=== PATIENT | male | born 1950 | race Caucasian/White ===

== ENCOUNTER → 2020-03-02 15:52 | Outpatient (CLI) | payer MEDICARE, OTHER, SELFPAY ==
[2020-03-02 17:18] LABS: Anion Gap 4 (5-15); BUN 38 mg/dL (7-18); BUN/Creat Ratio 23.6 RATIO (10-20); Calcium,Total 8.9 mg/dL (8.5-10.1); Chloride 110 mmol/L (98-107); Creatinine, Serum 1.61 mg/dL (0.70-1.30); EST Glomerular Filtration Rate 46 mL/min (>60); Est Glom Filt Rate - Afr Amer 55 mL/min (>60); Glucose 128 mg/dL (74-106); PSA,Total - Annual Screen 0.76 ng/mL (0.00-4.00); Sodium Level 141 mmol/L (136-145)
== END ==
PROVIDERS: PCP Nurse Practitioner Primary Care; Referring Provider Urology; Visit Provider Urology
DX: Q62.11 Congenital occlusion of ureteropelvic junction (principal); Z12.5 Encounter for screening for malignant neoplasm of prostate
CPT/HCPCS: 36415; 80048; 84153; G0103

== ENCOUNTER → 2021-04-06 06:57 | Outpatient (CLI) | payer MEDICARE, OTHER, SELFPAY ==
[2021-04-06 07:33] LABS: Hematocrit 37.6 % (40-54); Hemoglobin 12.1 g/dL (13.0-16.5); Mean Corp Hgb Conc 32.2 g/dL (32-36); Mean Corpuscular Hgb 30.2 pg (27.0-32.0); Mean Corpuscular Volume 93.8 fL (80-94); Mean Platelet Vol. 10.4 fl (6.2-12.0); Platelet Count 218 K/mm3 (150-450); RBC Distribution Width CV 13.3 % (11.6-14.6); RBC Distribution Width SD 46.5 fl (35.1-43.9); Red Blood Count 4.01 M/mm3 (4.6-6.2)
[2021-04-06 07:55] LABS: Hemoglobin A1c 7.3 % (3.8-5.6)
[2021-04-06 08:00] LABS: Anion Gap 4 (5-15); BUN 37 mg/dL (7-18); BUN/Creat Ratio 22.4 RATIO (10-20); Calcium,Total 8.9 mg/dL (8.5-10.1); Chloride 110 mmol/L (98-107); Creatinine, Serum 1.65 mg/dL (0.70-1.30); EST Glomerular Filtration Rate 44 mL/min (>60); Est Glom Filt Rate - Afr Amer 54 mL/min (>60); Glucose 173 mg/dL (74-106); Potassium 4.3 mmol/L (3.5-5.1); Sodium Level 139 mmol/L (136-145)
== END ==
PROVIDERS: PCP Nurse Practitioner Primary Care; Referring Provider Physician Assistant Surgical; Visit Provider Physician Assistant Surgical
DX: Z01.818 Encounter for other preprocedural examination (principal); Z01.810 Encounter for preprocedural cardiovascular examination; E11.9 Type 2 diabetes mellitus without complications
CPT/HCPCS: 36415; 80048; 83036; 85027

== ENCOUNTER → 2023-12-31 | Outpatient (CLI) | payer MEDICARE, OTHER, SELFPAY ==
--- NOTE | 2023-12-31 08:11 | CT_ITS ---
STUDY: CT LEFTLOWER EXTREMITY WITHOUT CONTRAST REASON FOR EXAM: Male, 73 years old. PRIMARY OSTEOARTHRISTIS LEFT KNEE RADIATION DOSAGE (If Supplied By Facility): CTDIvol = ( 18.56 ) mGy, DLP = ( 1141.72 ) mGycm TECHNIQUE: Thin section transaxial imaging of the ankle was obtained, with sagittal and coronal reconstructed images. Individualized dose optimization techniques were used for this CT. COMPARISON: None. Hip findings: The left hip joint space is preserved. Mixed gluteal fatty atrophy and scarring is present with calcific tendinitis also present is proximal to the greater tuberosity insertion site. There are no visualized fractures of the left hip joint or hemipelvic bony structures. Normal acetabulum. Normal superior and inferior pubic rami. Normal pubic symphysis. Normal ischial tuberosity. Normal origin of the hamstring tendons. Normal visualized iliac wing, sacroiliac joint, and sacral ala. Normal visualized soft tissue structures of the pelvis. Knee findings: There is severe narrowing of medial compartment. The patellofemoral and lateral compartments are mildly to moderately narrowed with secondary degenerative changes including multiple loose bodies in the patellofemoral articulation. There is also calcification of the collateral ligaments. Cortical spurring and subchondral cysts are also present on both sides of the articulation. Multiple loose bodies are also seen on the medial side of the knee joint distending the joint capsule. A moderate-sized knee joint effusion is present. There is also moderate subcutaneous edema around the knee joint extending into the upper calf. Normal proximal tibiofibular articulation. The quadriceps tendon is grossly normal. The patellar tendon is grossly normal. Normal Hoffa''s fat pad. No fractures are present in the joint. Ankle findings: Normal visualized distal tibia and fibula. Normal tibiotalar articulation and talar dome. There is mild narrowing cortical spurring and osteoarthritic changes of the talocalcaneal articulations. Normal subtalar, talonavicular and calcaneocuboid articulations. Atherosclerotic calcifications are present. Mild soft tissue swelling is also present. CT/Extremity Lower without Contra IMPRESSION: 1. Tricompartmental DJD of the knee joint with severe degenerative changes in the medial compartment Electronically Signed: Mike Dukes MD at 9:09 EDT ,
== END | disposition home or self-care (01) ==
LOC: CT 08:05
PROVIDERS: PCP Family Medicine; Referring Provider Physician Assistant Surgical; Visit Provider Physician Assistant Surgical
DX: M17.12 Unilateral primary osteoarthritis, left knee (principal)
CPT/HCPCS: 73700

== ENCOUNTER → 2024-04-07 | Outpatient (CLI) | payer MEDICARE, OTHER, SELFPAY ==
[2024-04-07 11:27] LABS: Bacteria 0 SEEN /hpf (None Seen); Mucous, Urine 0 SEEN /hpf (<or=2+); Red Blood Cells-Urine 0 SEEN /hpf (0-5); Squamous Epithelial Cells - UA 0 SEEN /hpf (0-5); White Blood Cells 0 SEEN /hpf (0-5)
[2024-04-07 11:38] LABS: Color, Urine Straw (Yellow); Glucose, Dipstick Normal (Normal); Ketone-Dipstick Negative (Negative); Leukocyte Esterase-Dipstick Negative /ul (Negative); Nitrite-Dipstick Negative (Negative); Occult Blood-Urine Negative /ul (Negative); Protein-Dipstick 100 mg/dl (Negative); Urine Bilirubin Dipstick Negative (Negative); Urine Clarity Clear (Clear); Urine Urobilinogen Normal (Normal)
[2024-04-07 12:11] LABS: Albumin, Serum 3.3 g/dL (3.2-5.0); BUN 61 mg/dL (7-18); BUN/Creat Ratio 27.4 RATIO (10-20); Calcium,Total 9.7 mg/dL (8.5-10.1); Chloride 109 mmol/L (98-107); Creatinine, Serum 2.23 mg/dL (0.70-1.30); EST Glomerular Filtration Rate 31 mL/min (>60); Est Glom Filt Rate - Afr Amer 37 mL/min (>60); Glucose 141 mg/dL (74-106); Phosphorus 3.7 mg/dL (2.5-4.9); Potassium 5.2 mmol/L (3.5-5.1); Sodium Level 139 mmol/L (136-145)
[2024-04-07 12:50] LABS: Microalbumin:Creatinine Ratio 4325.4 mg/g CRE (<30 mg/g CRE)
== END | disposition home or self-care (01) ==
LOC: POLAB3 11:25
PROVIDERS: PCP Family Medicine; Visit Provider Internal Medicine Nephrology
DX: R39.89 Other symptoms and signs involving the genitourinary system (principal)
CPT/HCPCS: 36415; 80069; 81001; 82043; 82570

== ENCOUNTER 2024-04-12 07:15 | Observation (INO) | payer MEDICARE, OTHER, SELFPAY ==
--- NOTE | 2024-03-30 07:34 | EKG12_ITS ---
Test Reason : PRE OP Blood Pressure : / mmHG Vent. Rate : 063 BPM Atrial Rate : 063 BPM P-R Int : 198 ms QRS Dur : 080 ms QT Int : 394 ms P-R-T Axes : 060 -37 045 degrees QTc Int : 403 ms Sinus rhythm with occasional Premature ventricular complexes Left axis deviation Anteroseptal infarct , age undetermined Abnormal ECG Confirmed by DRE SANDERS, JOANA ([id number]), telegraph editor FLAKITA DALY ([id number]) on 03/30/2024 1:26:30 PM Referred By: Shar Parikh Confirmed By:JOANA ERICKSON MD
[2024-03-30 08:08] LABS: Absolute Lymphocyte Count 1.82 X10^3/uL (0.83-4.51); Absolute Neutrophil Count 6.6 X10^3/uL (2.0-7.7); Basophil# 0.07 X10^3/uL; Basophil% 0.7 % (0-1); Eosinophil# 0.19 X10^3/uL; Hematocrit 35.9 % (40-54); Hemoglobin 11.4 g/dL (13.0-16.5); Lymphocyte # 1.82 X10^3/ul (0.83-4.51); Lymphocyte % 18.8 % (19-41); Mean Corp Hgb Conc 31.8 g/dL (32-36); Mean Corpuscular Hgb 30.1 pg (27.0-32.0); Mean Corpuscular Volume 94.7 fL (80-94); Mean Platelet Vol. 10.4 fl (6.2-12.0); Monocyte# 0.95 X10^3/uL; Monocyte% 9.8 % (0-10); NRBC Flagged by Analyzer 0 % (0-5); Platelet Count 210 K/mm3 (150-450); RBC Distribution Width CV 13.8 % (11.6-14.6); RBC Distribution Width SD 47.8 fl (35.1-43.9); Red Blood Count 3.79 M/mm3 (4.6-6.2); White Blood Count 9.7 K/mm3 (4.4-11.0)
[2024-03-30 08:32] LABS: Albumin, Serum 2.9 g/dL (3.2-5.0); Anion Gap 4 (5-15); BUN 43 mg/dL (7-18); BUN/Creat Ratio 20.2 RATIO (10-20); Calcium,Total 8.8 mg/dL (8.5-10.1); Chloride 108 mmol/L (98-107); Creatinine, Serum 2.13 mg/dL (0.70-1.30); EST Glomerular Filtration Rate 33 mL/min (>60); Est Glom Filt Rate - Afr Amer 40 mL/min (>60); Glucose 104 mg/dL (74-106); Potassium 5.1 mmol/L (3.5-5.1); Sodium Level 138 mmol/L (136-145)
[2024-03-30 08:34] LABS: Magnesium 2.1 mg/dL (1.6-2.6)
[2024-03-30 08:36] LABS: Hemoglobin A1c 6.6 % (3.8-5.6)
--- NOTE | 2024-04-03 07:35 | PCM.HP.BLA ---
History and Physical History and Physical Patient Name: Gil Turcios : 1950From:? GIL LAWRENCE PA-C DATE OF PRE-OPERATIVE EXAM: 04/02/2024 DATE OF SURGERY:? 04/12/2024 SCHEDULED PROCEDURE: Robotic-assisted left total knee arthroplasty HISTORY OF PRESENT ILLNESS: Preoperative history and physical exam was performed on April 02, 2024.? This is a 73-year-old male who has had ongoing pain for many years.? Patient has had a significant amount of treatment while residing in [place] in the past.? Patient's pain has been constant and sore.? Patient's pain is increased with going up and down stairs, sitting, and walking.? Pain does not awaken him at night.? Patient has difficulty with activities of daily living including putting on his socks and shoes and leisure activities such as hiking.? Patient's pain can reach at ?10/10.? On average 4/10.? Pain is located over the medial aspect of the knee and the anterior knee.? Patient has attempted previous conservative measures including corticosteroid injection which was not helpful, Visco supplementation injections with only temporary relief.? He reports at one time orthopedic provider in [place] attempted aspiration but was unsuccessful.? Patient denies past history of previous surgery.? He has attempted [id number]-[id number] medications including Tylenol.? He has difficulty driving due to the pain.? Patient is unable to use nonsteroidal anti-inflammatory as he has chronic kidney disease and only has 1 kidney.? 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 We have obtain surgical clearance from his inside sales recruiter Dr. Andre Lucas who is in [place], local primary care provider Dr. Esparza, and double needle operator in [place] Dr. Alec Arevalo.? Patient denies any recent chest pain or shortness of breath.? Denies past history of DVT or pulmonary embolism.? Patient's recent lab work did show some elevated kidney function and we are reaching out to the double needle operator with updated labs.? Patient was also placed on ferrous sulfate and folic acid following our anemia protocol.? He is on our nutrition protocol with 2 protein drinks daily.? After failing conservative measures and discussing treatment options was Dr. Shar Parikh, the patient does wish to proceed with a robotic assisted left total knee arthroplasty. REVIEW OF SYSTEMS: Review Of Systems: Constitutional: Denies change in appetite, fever and weight change. Cardiovasular: Denies chest pain, heart murmur and irregular heartbeat. Respiratory: Denies cough, pneumonia, shortness of breath, tuberculosis and wheezing. Gastrointestinal: Denies constipation, diarrhea, heartburn, nausea, rectal itching, bloody stools and vomiting. Genitourinary: Denies incontinence. Musculoskeletal: Reports pain, but denies leg swelling, trouble walking and weakness. Skin: Denies Raynaud's, history of shingles and tattoo. Neurological: Denies ambulatory dysfunction, dizziness, numbness/tingling and tremor. Psychiatric: Denies anxiety, insomnia and stress. Hematologic/Lymphatic: Denies anemia, bleeding/bruising tendency and past transfusion. Reviewed, no changes. PAST MEDICAL HISTORY: Advance Care Plan: Other Directive, LIVING WILL Effective Date: 12/08/2023 Past Medical History: Medical Problems: Arthritis, High Blood Pressure, Diabetes, Gout, Kidney Disease/Renal Failure Accidents: None Surgical Hx: Gallbladder, Carpal Tunnel Release Lt, Carpal Tunnel Release Rt LT Carpal Tunnel Release - (04/18/2021) Dr Opal Briggs @ [facility] Nephrectomy - (2013) as a child injured 1 side of his kidney due to being very sick at 6 months. Anesthesia Complications: None Assistive Devices: Glasses, Dentures Reviewed and updated. 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 Personal Habits:? Cigarette Use: Never Smoked Cigarettes.Smokeless Tobacco: Never Used Smokeless Tobacco.E-Cigarette Use: Never used.Alcohol: Denies use.Drug Use: Denies Use.Enjoy Exercising: Exercises 1-3 X/Week. Reviewed, no changes. VITALS: Ht: 63.4 Wt: 160lb Wt k.576 BMI: 28.0 BP: 126/70 Pulse: 64 Resp: 16 T: 97.5 T: 36.4C Pain Level: 4 O2SatR: 98 ALLERGIES: No Known Drug Allergy MEDICATIONS: Losartan Potassium 25 mg 1 po qdaily, Vitamin C 500 mg take 1 tablet by mouth twice daily., Garlic 1000 mg daily, Magnesium 250 mg 1 a day, Zinc 30 mg daily, Aloe Vera? daily, QC Tumeric Complex 500 mg daily, 369? daily, Glimepiride 4 mg 1 by mouth every day, Allopurinol 300 mg 1 po qdaily, Iron (Ferrous Sulfate) 325 (65 Fe) MG one by mouth once per day, Folic Acid 1 mg 1 by mouth every day, High-Protein Nutritional Shake? daily PRE-OP EXAM: General appearance:NORMAL? Other: Eyes: Conjunctivae and lids: NORMAL? Pupils: ERR Ears, Nose, Mouth, and Throat: NORMAL? Other: Inspection of lips, teeth and gums: NORMAL?? Other: Neck: Examination of neck: no masses noted. Respiratory: Assessment of respiratory effort: NORMAL?? Other: ? Auscultation of lungs: clear to auscultation no wheezes, rhonchi or rales. Cardiovascular:? Auscultation of heart: regular rate and rhythm, positive systolic murmur PHYSICAL EXAMINATION: Patient does walk with an antalgic gait.? He has no erythema or signs of infection to the left knee.? Patient does have a previous scar over the lateral aspect of the knee extending down to the tibia.? He has tenderness to palpation along the medial joint line.? He does have a varus deformity which is partially correctable on exam.? Range of motion: Lacks 40 full extension to 110 flexion.? Stable to anterior/posterior drawer exam.? Sensation intact to light touch. IMAGING STUDIES: Previous x-rays of the left knee reveal medial joint space narrowing, subchondral sclerosis, osteophyte formation consistent with grade 4 [id number]-op-ewtj erosive tricompartmental osteoarthritis.? The patellofemoral compartment patient does have a bipartite patella and severe degenerative changes. IMPRESSION: 1.? Severe left knee osteoarthritis 2.? Left knee bipartite patella 3.? Hypertension 4.? Type 2 diabetes mellitus A1c 6.6 5.? History of gout 6.? Chronic kidney disease with one kidney 7.? Overweight with BMI 28.0 8.? Anemia PLAN: Dr. Shar Parikh did discuss and review with the patient all treatment options including surgical versus nonsurgical options.? Patient does wish to proceed with the above-stated procedure.? Potential risks, benefits, and complications of the procedure were discussed in detail including but not limited to , infection, nerve and blood vessel damage, persistent pain, numbness, tingling, paresthesias, blood clot, pulmonary embolism, and requirement for possible further surgery.? The patient expressed full understanding and has no further questions for the doctor.? Patient does agree to proceed with the above-stated procedure and has signed the surgery consent form. POST-OP MEDICATION PLAN: Pain Medications:? Postoperative pain regimen will be initiated by Dr. Shar Parikh in the hospital.? Due to patient's chronic kidney disease and only one kidney we are avoiding any nonsteroidal anti-inflammatories.? Patient has been initiated on our anemia protocol with most recent hemoglobin 11.4.? He is also been started on nutrition protocol with his albumin 2.9 in absolute lymphocyte 1.82.? We are reaching out to the double needle operator due to the increased kidney function with his most recent creatinine at 2.13.? His baseline per documentation is usually 1.4-1.8. DVT Prophylaxis:? Aspirin 81 mg twice daily for 4 weeks postoperatively.? Denies past history of DVT or pulmonary embolism This dictation was created using voice recognition software. Phonetic and/or grammatical errors may exist. ___? I have re-examined the patient.? There are no clinical changes since date of exam. ___? See progress notes for changes. ___? Dictated on admission Date: ? Time: Signature:
[2024-04-12] VITALS (14 sets, daily range): BP systolic 121–166; BP diastolic 61–96; PULSE 64–77; RESP 16–18; TEMP 36.3–36.9; O2SAT 94–100; BMI 28.3
--- NOTE | 2024-04-12 | KNEE_PTH ---
PATIENT: IGLESIA GILES LOC: MS3 U#:[id number] AGE/SX: 73/M ROOM: [facility] [place] RE04/12/[address]: Dr. Shar Parikh MD : 1950 BED: 1 DIS: 04/13/2024 SPEC #: [id number] RECD: 04/12/24 13:29 STATUS: WILL REQ #: [id number] ASHLY: 04/12/24 00:[address]: Shar Parikh DEPT: SURGICAL PATHOLOGY RECD BY: Alphonse Esparza ENTERED: 04/13/24 09:34 SP TYPE: TOTAL KNEE OTHR DR: DO Dr. Hilary Pierre MD Dr. Nicholas F Kotsonis, MD Dr. Steven Murray, MD Tissues: Knee, NOS Procedures: Decalcification bone/plaque Surgery Specimen Level IV HEADER OPERATION: Total knee replacement robotic arm assist PRE-OP DIAGNOSIS: Severe left knee osteoarthritis TISSUE SUBMITTED: Bone and soft tissue left knee MICROSCOPIC DIAGNOSIS Bone and soft tissue, left knee, total knee replacement/resection: Pieces of bone with degenerative osteoarthritic changes. Fibroadipose tissue, fibroconnective tissue and reactive synovial tissue. : 04/16/2024 MICROSCOPIC DESCRIPTION Slides are reviewed. GROSS DESCRIPTION Received is one container designated bone and soft tissue left knee. The specimen consists of multiple fragments of corrales-yellow bone measuring in aggregate 11.0 x 8.0 x 3.5 cm. Also attached to one of the pieces of bone is a piece of soft tissue measuring in aggregate 4.0 x 1.5 x 0.5 cm. A number of bony fragments contain articular surfaces consistent with tibial plateau and femoral condyle and displaying prominent osteophyte formation and bone erosion. Outside Plant Field Engineer sections are submitted in two cassettes as follows: 1 - soft tissue, 2 - bone after decalcification. / OMAR. 04/13/2024 TC:5 CPT: 40890, 16482
[2024-04-12] MEDS: Acetaminophen 500 MG Tablet 1000 MG PO ×3 (06:00→21:06)
[2024-04-12] MEDS: Gabapentin 600 MG Tablet PO (06:01)
[2024-04-12] MEDS: Magnesium 1 GM over 15 mins IV (06:03)
[2024-04-12] MEDS: Lactated Ringers 1,000 ML 999 ML IV (06:03)
[2024-04-12] MEDS: Insulin Lispro 100 UNIT/ML INSULN.PEN SC ×2 (06:06→17:20)
[2024-04-12 06:23] LABS: Bedside Glucose 222 mg/dL (74-106)
--- NOTE | 2024-04-12 06:49 | PRE.ANES_ITS ---
ASA Classification* ASA Classification ASA Classification: 2 Assessment & Plan Anesthesia* Anesthesia Assessment Anesthesia Assessment: Discussed sedation and/or anesthesia options, risks, benefits, and alternatives with patient/parents/legal guardian/POA. Questions invited. The patient/parents/legal guardian/POA seems to understand and agrees to proceed with anesthesia plan. Reviewed the physical assessment, medical history, allergy history and patient home medications list prior to surgery/procedure/anesthetic and documented any changes. Performed airway and anesthesia risk assessments. Anesthesia Type Anesthesia Type: Spinal (Block consented) Anesthesia Focused Assessment* Temperature: 97.8 F Pulse Rate: 77 Blood Pressure: 166/91 Respiratory Rate: 16 Pulse Ox: 100 Airway Assessment Mouth opens: >3 cm Mallampati Score: II Focused Labs Anesthesia Preop lab: CBC WBC 9.7 K/mm3 (4.4-11.0) 03/30/24 07:57 RBC 3.79 M/mm3 (4.6-6.2) L 03/30/24 07:57 Hgb 11.4 g/dL (13.0-16.5) L 03/30/24 07:57 Hct 35.9 % (40-54) L 03/30/24 07:57 Plt Count 210 K/mm3 (150-450) 03/30/24 07:57 CHEMISTRY Potassium 5.2 mmol/L (3.5-5.1) H 04/07/24 11:25 Sodium 139 mmol/L (136-145) 04/07/24 11:25 Magnesium 2.1 mg/dL (1.6-2.6) 03/30/24 07:57 Phosphorus 3.7 mg/dL (2.5-4.9) 04/07/24 11:25 BUN 61 mg/dL (7-18) H 04/07/24 11:25 Creatinine 2.23 mg/dL (0.70-1.30) H 04/07/24 11:25 Glucose 141 mg/dL (74-106) H 04/07/24 11:25 POC Glucose 222 mg/dL (74-106) H 04/12/24 05:57 TSH 1.63 uIU/mL (0.358-3.74) 12/13/15 09:51 COAG Pre-Assessment Diagnosis/Proposed Procedure Planned Operative Procedure(s): ROBOTIC ASSISTED LEFT TOTAL KNEE ARTHROPLASTY Anesthesia History Anesthesia History - search engine marketing strategist: Anesthesia History - search engine marketing strategist Hx Hospitalization No 03/19/24 08:29 Any Problems With Anesthesia Yes: SLOW TO AWAKEN 03/19/24 08:29 Cholinesterase deficiency No 03/19/24 08:29 You/Your Family Experience No 03/19/24 08:29 fever (hyperthermia) with Relationship Recent Exposure to Contagious No 04/12/24 05:53 Disease Does patient have nerve No 03/19/24 08:29 stimulator Patient instructed to have device shut off --Does patient have Pacemaker No 04/12/24 05:53 or ICD? When Was Last Pacemaker Check QUESTION #4 FULL TEXT: You/Your Family Experience fever (hyperthermia) with Anesthesia Last Oral Intake Last Oral intake: Last Oral Intake NPO since 04:45 04/12/24 05:53 Meds taken in AM with sips of water? Meds patient instructed to take am of surgery PONV PONV - search engine marketing strategist: PONV - search engine marketing strategist Female No 03/19/24 08:29 HX of Motion Sickness Yes 03/19/24 08:29 HX of N/V After Surgery No 03/19/24 08:29 Non-Smoker Yes 03/19/24 08:29 Duration of Surgery greater Yes 03/19/24 08:29 than 60 minutes Number of Risk Factors 3 03/19/24 08:29 PONV Score Moderate Risk 03/19/24 08:29 Height & Weight Height & Weight: Anesthesia: Height & Weight Height 5 ft 2 in 04/12/24 05:53 Weight: 70.4 kg 04/12/24 05:53 Body Mass Index (BMI) 28.3 04/12/24 05:53 Respiratory Assessment Respiratory Assessment - search engine marketing strategist: Respiratory Tract Infection Hx - search engine marketing strategist Hx Respiratory Tract Infection No 03/19/24 08:29 STOP Sleep Apnea STOP Sleep Apnea - search engine marketing strategist: STOP Sleep Apnea - search engine marketing strategist Hx Hypertension Yes: CONTROLLED WITH MED 03/19/24 08:29 Hx Sleep Apnea No 03/19/24 08:29 CPAP BIPAP Do you snore loudly (louder No 03/19/24 08:29 than talking or can be heard Do you often feel tired/ Yes 03/19/24 08:29 fatigued/ sleepy during daytime? Has anyone observed you stop No 03/19/24 08:29 breathing during sleep? STOP Results Positive 03/19/24 08:29 QUESTION #5 FULL TEXT : Do you snore loudly (louder than talking or can be heard through closed doors)? Tobacco Use History Tobacco Use History - search engine marketing strategist: Tobacco Use History - search engine marketing strategist Tobacco Use Smoking Status Never smoker 03/19/24 08:29 Hx Tobacco Use No 03/19/24 08:29 Years Smoking Packs Smoked per Day Smoking Cessation Date was within the last 15 years Hx Smoking Cessation Date Hx Smoking Cessation Counseling Hematologic Medial History Hematologic Hx - search engine marketing strategist: Hematologic Medical Hx - rn clinical documentation specialist Hx of Blood Transfusion No 03/19/24 08:29 Hx of Transfusion in last 3 No 03/19/24 08:29 Months Date of Last Transfusion (if within last 3 months) Ever experience any problems No 03/19/24 08:29 with transfusion(s)? Specify any problems Hx of Preganancy in last 3 N/A 03/19/24 08:29 Months Nurse Filling Out Transfusion DSCHRIBER 03/19/24 08:29 & Questions: Date: 03/19/24 03/19/24 08:29 Time: 08:31 03/19/24 08:29 Patient unable to answer at this time (ie. confused, unrespo /Reproduction History /Reproductive History - search engine marketing strategist: /Reproductive Hx- search engine marketing strategist Hx Now No 03/19/24 08:29 Gestational Age (in weeks): EDC: Hx Hx Para Hx Section SAB No 03/19/24 08:29 Active Medications Active Medications: Current Medications Generic Name Dose Route Start Last Admin Trade Name Freq PRN Reason Stop Dose Admin Acetaminophen 1,000 mg 04/12/24 07:30 04/12/24 06:00 Acetaminophen 500 Mg Tablet PO 04/12/24 07:31 1,000 mg X1 ONE Administration Sodium Chloride 77.4 ml/ 0 ml 04/12/24 07:30 Ropivacaine 200 mg/ OPERA.SITE 04/12/24 07:31 Epinephrine HCl 0.6 mg/ X1 ONE Ketorolac Tromethamine 30 mg/ Morphine Sulfate 5 mg Dexamethasone Sodium Phosphate 10 mg 04/12/24 07:30 Dexamethasone 10 Mg/Ml Vial IV 04/12/24 07:31 X1 ONE Gabapentin 600 mg 04/12/24 07:30 04/12/24 06:01 Gabapentin 600 Mg Tablet PO 04/12/24 07:31 600 mg X1 ONE Administration Lactated Ringer's 1,000 mls @ 999 mls/hr 04/12/24 07:30 04/12/24 06:03 IV 04/12/24 08:30 999 mls/hr .Q1H1M BRIEN Administration Cefazolin Sodium 2 gm/ Sodium 110 mls @ 150 mls/hr 04/12/24 07:30 Chloride IV 04/12/24 08:13 PREOP ONE Tranexamic Acid 1,000 mg/ 110 mls @ 660 mls/hr 04/12/24 07:30 Sodium Chloride IV 04/12/24 07:39 X1 ONE Tranexamic Acid 1,000 mg/ 110 mls @ 660 mls/hr 04/12/24 07:30 Sodium Chloride IV 04/12/24 07:39 X1 ONE Lactated Ringer's 1,000 mls @ 125 mls/hr 04/12/24 07:30 IV 04/12/24 15:29 .Q8H BRIEN Magnesium Sulfate 1 gm/ 102 mls @ 408 mls/hr 04/12/24 07:30 04/12/24 06:03 Dextrose IV 04/12/24 07:44 408 mls/hr X1 ONE Administration Insulin Human Lispro 1 - 6 unit 04/12/24 07:30 04/12/24 06:06 Insulin Lispro 100 Unit/Ml Insuln.Pen SC 2 units Q4H PRN PRN Administration BG>/= 180, SEE PROTOCOL Protocol PFSH Medical History (Updated 03/19/24 @ 08:41 by Deisy Shelby) Loss of hearing Wears glasses Wears dentures Diabetes Gout Arthritis History of renal disease Back pain Syncope Dietary restriction Shortness of breath on exertion Non-smoker Leg cramps History of pain when walking History of stress test Hypertension Home Medications ?Medication ?Instructions ?Recorded ?Last Taken ?Type KYOLIC 1 cap PO DAILY 03/19/24 04/07/24 History allopurinol 100 mg tablet 100 mg PO DAILY 03/19/24 04/11/24 History aloe vera 25 mg capsule 25 mg PO DAILY 03/19/24 04/11/24 History apple cider vinegar 500 mg tablet 500 mg PO DAILY 03/19/24 04/08/24 History calcium carbonate 500 mg PO DAILY 03/19/24 04/07/24 History cyanocobalamin (vitamin B-12) 1,000 mcg PO QDAY 03/19/24 04/07/24 History 1,000 mcg tablet (Vitamin B-12) fish, borage, flaxseed oils-omega 1 cap PO DAILY 03/19/24 04/07/24 History 3,6,9 comb no.1 1,200 mg capsule (Tonica 3-6-9) ligia root extract 15 mg chewable 15 mg PO DAILY 03/19/24 04/07/24 History tablet glimepiride 4 mg tablet 4 mg PO DAILY 03/19/24 04/11/24 History losartan 25 mg tablet 25 mg PO DAILY 03/19/24 04/11/24 History vitamin E 200 unit capsule 134 mg PO DAILY 03/19/24 04/07/24 History zinc gluconate 50 mg tablet 50 mg PO DAILY 03/19/24 04/07/24 History Allergy/AdvReac Type Severity Reaction Status Date / Time No Known Allergies Allergy Verified 04/12/24 05:51 Surgical History (Updated 03/19/24 @ 08:41 by Deisy Shelby) History of nephrectomy, left History of carpal tunnel surgery of right wrist History of carpal tunnel surgery of left wrist Hx laparoscopic cholecystectomy Social History Smoking Status: Never smoker Review of Systems (Anesthesia) ROS Narrative System reviewed and no additional complaints, except as documented.
[2024-04-12] MEDS: Cefazolin 2 GM in 0.9% Normal Saline (100mL Bag) 100 ML IV (07:35)
[2024-04-12] MEDS: TXA 1000mg in NS100 100ml (IVPB at Incision) 660 MG IV (07:43)
[2024-04-12] MEDS: dexAMETHasone 10 MG/ML Vial IV (07:55)
[2024-04-12] MEDS: TXA 1000mg in NS100 100ml (IVPB at Closure) 660 MG IV (08:49)
--- NOTE | 2024-04-12 08:57 | OP.PCM_ITS ---
Report of Operation Date of Procedure: 04/12/24 Pre-Operative Diagnosis: Left knee primary osteoarthritis Post-Operative Diagnosis: Left knee primary osteoarthritis Surgery/Procedure Performed:: Left knee minimally invasive robotic assisted total knee replacement Description of Surgical Findings:: Stable knee with good patella tracking Surgeon: Shar Parikh heating operators engineer: Gil Lancaster Type of Anesthesia: Spinal Anesthesiologist: Dillon Garner Special Medications: 2 g Ancef, 1 g TXA at incision, 1 g TXA closure, 10 mg Decadron, joint cocktail (5 mg Duramorph, 30 mL of 0.5% Ropivicaine, 1000 units of epinephrine, 30 mg of Toradol) Specimen's removed: Bony cuts Estimated Blood Loss (mL): 100 Fluids Replaced: 700 Description of Procedure: Implants used: 1. Giuseppe size 2 triathlon cruciate retaining distal femoral press-fit component 2. [place]vue size 3 press-fit tritanium tibial baseplate 3. [place] X3 9 mm CS polyethylene 4. Giuseppe X3 27mm symmetric patella Brief history operative indications: 73-year-old M with history of left knee osteoarthritis with radiographic findings with loss of joint space, osteophyte formation and subchondral sclerosis. Failed conservative measures as mentioned in the H&P. Discussion of total knee arthroplasty as well as risk and benefits were discussed the patient including but not limited to blood loss, DVTs, PEs, neurovascular damage, general risk of anesthesia including loss of life, and stiffness or instability were discussed with patient. Patient demonstrated understanding and was able to sign informed consent. Procedure: On the date of procedure patient's left lower extremity was marked in the preoperative area. The patient was then taken back to the operating room where the patient was placed on the table in the supine position. All bony prominences were identified a well-padded. Anesthesia assumed control of the C-spine and airway and remained controlled throughout the remainder of the procedure. A tourniquet was placed on the left upper thigh and the leg was prepped in a sterile fashion. The surgeon then scrubbed at this time .Upon reentering the room left lower extremity was draped in a standard orthopedic fashion. A timeout was then called and everyone agreed upon the side, the site, the procedure to be performed, patient's identity and antibiotics given. Esmarch bandage was used to exsanguinate the extremity and the tourniquet was placed up to 250 mmHg with the knee in flexion. A midline skin incision was made and sharp dissection was taken down through skin subcutaneous tissue and fat. The standard medial parapatellar incision was made and the patella was subluxed laterally. An Appropriate deep MCL release was done and the fat pad was resected. Our attention was then directed to the patella. The patella was everted and a flat resection was made. The knee was then flexed up in 2 femoral pins were placed inside the incision and 2 tibial pins were placed outside the incision in the medial tibia bicorti bryanna. Once this was completed the 2 checkpoints in the femur and tibia were placed. Knee was then flexed up and the bony landmarks were registered. Once this was completed knee was taken through range of motion and manually stressed allowing us to a plan for an appropriate tibial cut. The robotic arm was brought into the field sterilely and checkpoint and saw were registered. Based on the patient's deformity the tibial cut was made in 3 degrees of varus. At this time the tensioner was then placed in the joint and ligament tension was checked at 90 degrees and full extension. Based on the patient's ligamentous tension appropriate adjustments were made to the operative plan and ligament releases were done. Once we were happy with our operative plan with balanced flexion and extension gaps our attention was directed to the femur. The robot was brought into the field sterilely and registered. Posterior condylar cuts, anterior chamfer cuts and anterior cuts were appropriately made for a size 2 femur. When these were completed the saws were switched out in the distal femoral and posterior chamfer cuts were made. Protecting the soft tissue throughout this time. A size 3 tibial base plate was selected. the knee was flexed to 90 degrees and the soft tissues and posterior osteophytes were removed from the joint. 40 cc of the periarticular injection was injected into the posterior medial corner of the joint. The appropriate trials were then placed on the femur and tibia. A trial polyethylene was trialed to ensure proper balancing and stability of the knee. The appropriate tibial internal rotation was then marked with a bovie. Our attention was then directed to the patella. The lug holes were drilled and the patella trial was placed. Patellar tracking was checked and deemed appropriate. Once we were happy lug holes were drilled for the femur and trial components were removed. the tibia was subluxed and pinned into place and the keel was punched and drilled appropriately. Final components were verified and opened, and cement was mixed in a vacuum. [employer] Simplex cement was used. The wound was copiously irrigated with normal saline. When the cement was ready the components were impacted into place starting with the tibia, femur and finally cementing the patella. The trial poly component was placed and the knee was placed in full extension. All excess cement was removed in the process. Once the cement had cured the tracking, alignment and balance were verified and a size 9 mm CS polyethylene component was placed. Once the final components were placed a 3-minute dilute Betadine lavage was performed followed by an Irrisept lavage was performed and the wound was copiously irrigated with normal saline solution and the periarticular injection was given. The wound was closed in a layer rahman fashion using #1 vicryl interrupted sutures for the arthrotomy, 2-0 interrupted Vicryl suture for the subcuticular layer and natalie for final skin closure. A sterile compressive dressing was then placed. The patient was then awakened from anesthesia, transferred to the [place] and transferred to the PACU for recovery. Post op plan DVT ppx: ASA 81mg BID, thigh high compression stockings Follow up: in office in 2 weeks for wound check PT: to start POD #0 at hospital, outpatient PT should be arranged. My physician assistant director of public works was a vital part of this case. He was important in appropriate retraction during the case, and protection of soft tissues during bony cuts. His intimate knowledge of the case and my steps aided in safe and expedient completion of the procedure as well as appropriate position of the leg during the case. He was also vital in assisting with closure under my direct supervision. Due to the complexity of this case robotic arm was used to assist in the surgery to improve accuracy and clinical outcomes. Complications No intraoperative complications Admit VTE Documentation VTE Present on Admission: No VTE Mechan Device Prophylaxis: SCD's and Thigh High JOSE Hose VTE Pharm Prophylaxis ordered?: Yes
[2024-04-12] MEDS: JPS (Morphine 10mg/ml) OPERA.SITE (09:00)
[2024-04-12] MEDS: Famotidine 20 MG Tablet PO (10:00)
--- NOTE | 2024-04-12 10:05 | RAD_ITS ---
STUDY: X-RAY - LEFT KNEE REASON FOR EXAM: Male, 73 years old. Post op -- AP and Lateral xray of operative knee in PACU TECHNIQUE: 2 view(s) of the knee. COMPARISON: None. FINDINGS: Normal visualized distal femur. Normal visualized proximal tibia and fibula. Normal proximal tibiofibular articulation. The patient is status post total knee replacement. There is good alignment. Postoperative soft tissue changes. RAD/Knee 1 or 2 Views IMPRESSION: Status post total knee replacement. There is good alignment. Postoperative soft tissue changes. Electronically Signed: Marco Ramires MD at 10:40 EDT ,
--- NOTE | 2024-04-12 10:27 | PCM.POST.ANE ---
Anesthesia: Postop Eval I Current Vital Signs Temperature: 97.4 F Pulse Rate: 71 Blood Pressure: 144/74 Respiratory Rate: 16 Pulse Ox: 96 Oxygen Delivery Method: Room Air Assessment Airway patent: Yes Spontaneous unlabored respirations: Yes Mental status: Awake and Calm nausea: No Vomiting: No Anesthesia Complication: No Fluid Hydration Crystalloid volume administer (ml): 700 Total IV fluid infused: 700 Progress Note Anesthesia document: Postop Eval 1 completed: Yes
[2024-04-12] MEDS: Lactated Ringers 1,000 ML 125 ML IV (10:32)
[2024-04-12 10:49] LABS: Bedside Glucose 194 mg/dL (74-106)
--- NOTE | 2024-04-12 10:54 | SUR.PHASEII ---
PATIENT TOLERATING LIQUIDS SO PATIENT WAS ADVANCED TO REGULAR DIET.
--- NOTE | 2024-04-12 10:58 | CON.PCM.HO_ITS ---
Assessment & Plan Assessment/Plan (1) Osteoarthritis of left knee: PLAN: Plan This is a 72-year-old gentleman was seen as hospitalist consultation for perioperative management of left knee primary osteoarthritis. 1. Left knee primary osteoarthritis recalcitrant to medical management: [facility] knee minimally invasive robotic assisted TKR on 04/12/2024. Dressing is dry. No significant pain. Patient can move his toes. Voided urine. Had bowel movement before surgery. DVT prophylaxis as per surgeon's discretion. Incentive spirometry. 2. Diabetes mellitus type 2: Last glucose 141 on BMP on 04/07. A1c 6.6% on 03/30. Patient on sliding scale insulin besides oral medications glimepiride 4 mg daily. 3. Hypertension, not on goal: Blood pressure today is in systolic 140s to 166. Monitor BP. On losartan 25 mg daily. Hydralazine 10 mg IV Q4 hourly as needed for SBP more than 180 mmHg. 4. 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 Expected creatinine about 1.3-1.6 with single kidney. Last BMP from 04/07 shows K5.2 mild hypokalemia, sodium normal bicarb normal. Therefore IV fluids selected is half-normal saline. Monitor BMP tomorrow AM. 5. Overweight: BMI 28.4 kg/m?, weight loss counseling done. Land Acquisition Manager consult. 6. Chronic normocytic normochromic anemia: H&H 11.4/35.9%. Platelet count normal. Laboratory Results 04/12/24 05:57: POC Glucose 222 H 04/12/24 10:30: POC Glucose 194 H 04/12/24 14:44: POC Glucose 338 H HPI Consult Data Date of Consult: 04/12/24 HPI Narrative Reason for Consultation: Perioperative management for diabetes mellitus and other medical conditions HPI Narrative: IGLESIA GILES, is a 73 M who presents after elective surgery for left knee primary osteoarthritis. Left knee minimally invasive robotic assisted TKR He denies any chest pain, shortness of breath, palpitation. No vomiting or nausea or abdominal surgery. Patient had a spontaneously voided urine. Denies chronic history of CAD or stroke. Has chronic essential hypertension and diabetes mellitus type 2. [facility] Medical History Loss of hearing Wears glasses Wears dentures Diabetes Gout Arthritis History of renal disease Back pain Syncope Dietary restriction Shortness of breath on exertion Non-smoker Leg cramps History of pain when walking History of stress test Hypertension Home Medications ?Medication ?Instructions ?Recorded ?Last Taken ?Type KYOLIC 1 cap PO DAILY 03/19/24 04/07/24 History allopurinol 100 mg tablet 100 mg PO DAILY 03/19/24 04/11/24 History aloe vera 25 mg capsule 25 mg PO DAILY 03/19/24 04/11/24 History apple cider vinegar 500 mg tablet 500 mg PO DAILY 03/19/24 04/08/24 History calcium carbonate 500 mg PO DAILY 03/19/24 04/07/24 History cyanocobalamin (vitamin B-12) 1,000 mcg PO QDAY 03/19/24 04/07/24 History 1,000 mcg tablet (Vitamin B-12) fish, borage, flaxseed oils-omega 1 cap PO DAILY 03/19/24 04/07/24 History 3,6,9 comb no.1 1,200 mg capsule ([place] 3-6-9) ligia root extract 15 mg chewable 15 mg PO DAILY 03/19/24 04/07/24 History tablet glimepiride 4 mg tablet 4 mg PO DAILY 03/19/24 04/11/24 History losartan 25 mg tablet 25 mg PO DAILY 03/19/24 04/11/24 History vitamin E 200 unit capsule 134 mg PO DAILY 03/19/24 04/07/24 History zinc gluconate 50 mg tablet 50 mg PO DAILY 03/19/24 04/07/24 History Allergy/AdvReac Type Severity Reaction Status Date / Time No Known Allergies Allergy Verified 04/12/24 05:51 Surgical History History of nephrectomy, left History of carpal tunnel surgery of right wrist History of carpal tunnel surgery of left wrist Hx laparoscopic cholecystectomy Social History Smoking Status: Never smoker ROS ROS Narrative Constitutional: Reports fatigue and weakness. No fever. HEENT: Reports systems reviewed and no addt'l complaints, except as documented Respiratory/Chest: No acute shortness of breath or respiratory distress or wheezing. Never been a smoker. CVS: No chest pain or shortness of breath. Gastrointestinal: Denies coffee ground emesis, hematemesis or vomiting Genitourinary: Denies burning urination or new urinary tract symptoms Musculoskeletal: Chronic left knee primary osteoarthritis. Surgery left knee today. Neurologic: Denies seizure-like symptoms. skin: No ulcer. No rash Endocrinology: Reports systems reviewed and no addt'l complaints, except as documented Hematologic/Lymphatic: Reports systems reviewed and no addt'l complaints, except as documented Rest 14 ROS are negative except as mentioned in HPI Physical Exam Narrative General: Alert, Oriented x3, Cooperative HEENT: Atraumatic, PERRLA, EOMI, Normocephalic Oral: Oral mucosa moist. No Gingival or Mucosal Lesions/ Ulcerations Neck: Supple, No JVD, Negative Carotid Bruits Chest wall/Lungs: Air entry diminished in bilateral lung bases. No crepitation/rhonchi Cardiovascular: Regular rate, Regular Rhythm, Normal S1, Normal S2, systolic murmur LLSB cardiac apex. Abdomen: Bowel Sounds Present, Soft, Non Tender, Non-Distended : No dysuria. Spontaneously voided urine. No renal angle tenderness. No suprapubic tenderness. Extremities: No edema, Capillary Refill Less than 3 Seconds Skin: No rashes, No breakdown Musculoskeletal: No Tenderness to Palpation of Joints or Extremities Neurological: Cranial nerves II-XII grossly intact, DTR 2+/4. No acute focal neurological deficit. Psych/Mental Status: Normal Affect, Appropriate. Lab / Micro Data 03/30/24 07:57 03/30/24 07:57 Labs: Laboratory Results - last 24 hr 04/12/24 05:57: POC Glucose 222 H 04/12/24 10:30: POC Glucose 194 H Imaging Radiology Impression Knee X-Ray 04/12/24 10:05 IMPRESSION: Status post total knee replacement. There is good alignment. Postoperative soft tissue changes. Electronically Signed: Marco Ramires MD at 10:40 EDT , Charges/Coding Visit Charges Office Visits / Consults: 33266 OV L4 Est 30min
--- NOTE | 2024-04-12 11:21 | POSTOPAN2_ITS ---
Anesthesia Postop Eval I Sum Postop Eval Completion status Anesthesia document: Postop Eval 1 completed: Yes Anesthesia Postop Eval I Summary Anesthesia Postop Eval I Summary: Anesthesia Postop Eval I: Assessment Summary Airway patent Yes 04/12/24 10:28 STRING STUDIES DIRECTOR.[email or web address] Spontaneous unlabored Yes 04/12/24 10:28 STRING STUDIES DIRECTOR.OCTAVIA respirations Mental status Awake,Calm 04/12/24 10:28 STRING STUDIES DIRECTOR.TOVALOU nausea No 04/12/24 10:28 STRING STUDIES DIRECTOR.TOVALOU Vomiting No 04/12/24 10:28 STRING STUDIES DIRECTOR.TOVALOU Anesthesia Postop Eval I: Fluid Summary Crystalloid volume administer 700 04/12/24 10:28 STRING STUDIES DIRECTOR.TOVALOU (ml) Colloids volume administered ( ml) Blood Product volume administered (ml) Total IV fluid infused 700 04/12/24 10:28 STRING STUDIES DIRECTOR.MARCYU Anesthesia Postop Eval I: Summary Notes Anesthesia Complication No 04/12/24 10:28 STRING STUDIES DIRECTOR.OCTAVIA Anesthesia Complication Comment: Post-operative progress note Anesthesia: Postop Eval II Evaluation Mental status: Awake Pain Level: 0 nausea: No Vomiting: No
--- NOTE | 2024-04-12 11:21 | PCM.POSTANE2 ---
Anesthesia Postop Eval I Sum Postop Eval Completion status Anesthesia document: Postop Eval 1 completed: Yes Anesthesia Postop Eval I Summary Anesthesia Postop Eval I Summary: Anesthesia Postop Eval I: Assessment Summary Airway patent Yes 04/12/24 10:28 PATTERN ROOM ATTENDANT.TOVALOU Spontaneous unlabored Yes 04/12/24 10:28 PATTERN ROOM ATTENDANT.OCTAVIA respirations Mental status Awake,Calm 04/12/24 10:28 PATTERN ROOM ATTENDANT.TOVALOU nausea No 04/12/24 10:28 PATTERN ROOM ATTENDANT.TOVALOU Vomiting No 04/12/24 10:28 PATTERN ROOM ATTENDANT.TOVALOU Anesthesia Postop Eval I: Fluid Summary Crystalloid volume administer 700 04/12/24 10:28 PATTERN ROOM ATTENDANT.TOVALOU (ml) Colloids volume administered ( ml) Blood Product volume administered (ml) Total IV fluid infused 700 04/12/24 10:28 PATTERN ROOM ATTENDANT.MARCYU Anesthesia Postop Eval I: Summary Notes Anesthesia Complication No 04/12/24 10:28 PATTERN ROOM ATTENDANT.OCTAVIA Anesthesia Complication Comment: Post-operative progress note Anesthesia: Postop Eval II Evaluation Mental status: Awake Pain Level: 0 nausea: No Vomiting: No
--- NOTE | 2024-04-12 12:52 | SUR.PHASEII ---
PATIENT'S FOOD TRAY HAS ARRIVED AND DELIVERED TO THE PATIENT. O2 REMOVED.
--- NOTE | 2024-04-12 14:38 | SUR.PHASEII ---
PHARMACIST CALLED AND ADVISED WHAT P.O. MEDICATIONS SHOULD BE GIVEN WHILE WE WAIT FOR A BED FOR THE PATIENT. GLIMEPIRIDE, ALLOPURINOL, FAMOTIDINE, CALCIUM, AND LOSARTAN WILL BE GIVEN.
[2024-04-12] MEDS: Calcium (Elemental) 500 MG Tablet PO (14:46)
[2024-04-12] MEDS: Glimepiride 4 MG Tablet PO (14:46)
[2024-04-12] MEDS: Losartan Potassium 25 MG Tablet PO ×2 (14:46→17:07)
[2024-04-12] MEDS: Allopurinol 100 MG Tablet PO (14:46)
[2024-04-12] MEDS: Cefazolin 1 GM/50 ML BAG IV ×2 (14:49→22:03)
[2024-04-12 15:16] LABS: Bedside Glucose 338 mg/dL (74-106)
[2024-04-12] MEDS: Aspirin 81 MG TAB.CHEW PO (17:06)
[2024-04-12] MEDS: Ensure Surgery 237 ML LIQUID PO (17:09)
[2024-04-12] MEDS: 0.45% Normal Saline 1,000 ML 75 ML IV (17:10)
[2024-04-12 17:31] LABS: Bedside Glucose 330 mg/dL (74-106)
[2024-04-12] MEDS: Ondansetron 4 MG/2 ML Vial IV (20:46)
[2024-04-12] MEDS: Senna/Docusate Sodium 1 Tablet 2 TABLET PO (21:02)
[2024-04-12 21:15] LABS: Bedside Glucose 251 mg/dL (74-106)
[2024-04-13 03:27] VITALS: BP 127/72; PULSE 64; RESP 16; TEMP 36.8; O2SAT 94
[2024-04-13 06:55] VITALS: BP 175/82; PULSE 64; RESP 16; TEMP 36.6; O2SAT 95
[2024-04-13] MEDS: Losartan Potassium 25 MG Tablet PO (06:59)
[2024-04-13] MEDS: Insulin Lispro 100 UNIT/ML INSULN.PEN SC ×2 (07:00→11:19)
[2024-04-13] MEDS: Acetaminophen 500 MG Tablet 1000 MG PO (07:02)
--- NOTE | 2024-04-13 07:08 | PN.ORTHO_ITS ---
Subjective Subjective The patient was sitting in bed upon examination. Patient denies any chest pain, shortness of breath, dizziness, lightheadedness, nausea or vomiting, or calf pain. Pain is controlled on medications. No adverse overnight events. Patient overall is doing very well this morning. He worked with therapy yesterday and did well. He has no significant complaints this morning. The block is still working. We did discuss the block wearing off and pain increasing. He voiced understanding. Patient preoperatively was seen by the local manager life insurance Dr. Farhana Ponce. He normally sees manager life insurance in [place]. He has 1 kidney and dealing with chronic kidney disease. He is also having some normocytic anemia that he is currently taking iron and folic acid. Patient does wish to go home today as long as he is medically stable. He has outpatient physical therapy established. Objective Data Objective Data Vital Signs: Vital Signs Temp Pulse Resp BP Pulse Ox O2 Del Method O2 Flow Rate 97.9 F 64 16 175/82 H 95 Room Air 4 04/13/24 06:55 04/13/24 06:55 04/13/24 06:55 04/13/24 06:55 04/13/24 06:55 04/13/24 06:55 04/12/24 10:30 Oxygen Flow Rate (L/min) 4 Oxygen Delivery Method Room Air Weight: 70.4 kg Body Mass Index (BMI) 28.3 Intake & Output: Intake and Output for Last 24 Hours 04/11/24 04/12/24 04/13/24 23:59 23:59 23:59 Intake Total 3379.92 / 3579.92 1300 / 1300 Output Total 850 / 1050 375 / 375 Balance 2529.92 / 2529.92 925 / 925 Lab / Micro Data 03/30/24 07:57 03/30/24 07:57 Labs: Laboratory Results - last 24 hr 04/12/24 10:30: POC Glucose 194 H 04/12/24 14:44: POC Glucose 338 H 04/12/24 17:06: POC Glucose 330 H 04/12/24 20:55: POC Glucose 251 H Micro: Microbiology 03/30/24 07:57 Swab (Method) Nasal Screen MRSA/MSSA - Final Radiography Diagnostic Testing: Radiology Impression Knee X-Ray 04/12/24 10:05 IMPRESSION: Status post total knee replacement. There is good alignment. Postoperative soft tissue changes. Electronically Signed: Marco Ramires MD at 10:40 EDT , Physical Exam Narrative Vital signs stable and afebrile. SCDs and OJSE hose are in place bilaterally Patient is able to plantarflex and dorsiflex actively. Sensation is intact to light touch to saphenous, sural, superficial and deep peroneal, and tibial distribution. Patient has trace drainage over the distal one third of the main Mepilex dressing. No drainage over the distal pin site dressing Negative Homans bilaterally, negative signs and symptoms of DVT. Const alert, oriented x3 and no apparent distress Assessment & Plan Assessment/Plan (1) Status post total left knee replacement: PLAN: 1. S/P left robotic assisted total knee arthroplasty POD #1 2. Continue Pain Medications: Tylenol and oxycodone. We are avoiding nonsteroidal anti-inflammatories due to his chronic kidney disease. 3. DVT Prophylaxis: Take 81 mg aspirin twice daily for 4 weeks postoperatively for DVT prophylaxis. Patient denies past history of DVT or pulmonary embolism. 4. PT/OT: Weightbearing as tolerated with walker 5. H & H: Currently awaiting lab work, asymptomatic. Patient does have chronic normocytic normochromic anemia in which she is currently on iron and folic acid. I would recommend he continue with this medication and we will have him follow- up with the primary care physician in 2-3 weeks with repeat labs including CBC and BMP. I will have social sciences instructor establish this appointment. Discussed this with the patient. He voiced understanding. 6. Encouraged Incentive Spirometry 7. Patient is aware of postoperative constipation that can occur from 1-3 days postoperatively. Will continue with senna 2 tablets twice daily until first bowel movement. Patient was advised if not having a bowel movement after day 3 she is to contact orthopedics so appropriate change can be made. Patient voiced understanding. 8. Continue postoperative medical treatment per medicine: Patient does have chronic history of kidney disease with only 1 kidney. Patient has been seen preoperatively by local manager life insurance Dr. Farhana Ponce. They do recommend follow-up in 3-4 months. Prior to discharge I would want to make sure patient is stable with regards to his BMP. Appreciate any recommendations from medicine. 9. Disposition: The plan will be for possible discharge home this afternoon as long as patient's labs are stable, pain is adequately controlled, patient tolerates therapy, and medically stable. I did discuss with the patient postoperative discharge medications in great detail. I did recommend patient hold off of his supplements and fish oils for 2 weeks postoperatively. Patient would like his prescriptions E scribed to [facility] in [facility]. He will follow- up per postoperative instructions. Patient has outpatient physical therapy established. I would also recommend patient is following with his primary care physician in 2-3 weeks for repeat labs. I did discuss this with the nurse and will have social sciences instructor establish this appointment. Patient was instructed to contact our office with any concerns or questions upon discharge. I will reach out to the nursing staff this afternoon to see how patient is doing for possible discharge. I have reviewed the [place] Automated Rx Reporting System (OARRS) report for this patient for refill pattern and other prescriber involvement as part of the appropriate surveillance for the provision of acute and chronic controlled medications. The report was requested and reviewed on the date of this entry and was considered in the prescribing process. This dictation was created using voice recognition software. Phonetic and/or grammatical errors may exist. (2) History of renal disease:
--- NOTE | 2024-04-13 07:15 | DCINST_ITS ---
Discharge Instructions Diet Discharge Diet: No restrictions Activity Discharge Activity: May Not Drive (Do not drive until you can walk 100 feet with use of cane and off all narcotics) May shower in (days): 1 (Please turn dressing away from water. Okay to get wet as long as dressing is intact to skin.) Ice area for (Minutes): 20 (Every 1-2 hours while awake[address] Please place barrier between the skin and ice pack.) Weight Bearing Status: Weight bearing as tolerated Keep extremity elevated above heart level: Operative Extremity Dressing / Incision Call your doctor if your incision/area has: Continuous Slow Oozing, Sudden Increased Bleeding, Increased Pain/ Swelling, Increased Redness and Foul Smelling Discharge Call your doctor if you observe: Fever of 101 or Higher, Coldness, Increased Pain, Numbness or Tingling, Change in Color, Shortness of breath, Chest pain, Calf discomfort and Uncontrolled pain Remove Dressing in: 4 days (Okay to remove dressing on April 17, 2024) Additional Dressing/Incision Instructions:: Follow [facility] Post-op Instructions. Once postoperative dressing has been removed only use gentle soap and water over the incision. Do not use any ointments, Neosporin, salves, alcohol pads over the incision for 6 weeks postoperatively. Do not submerge underwater for 6 weeks postoperatively. Continue with JOSE hose/elastic stockings for 2 weeks postoperatively. May remove at nighttime but needs to be placed back on the leg during the day. Do NOT use alcohol with narcotic pain medication. Do NOT make important decisions while taking narcotic medication. If you have problems with taking your medication (rash, itching, nausea, etc.) call the office at once. Follow Up Care Test Results: Test results from this visit will be discussed in further detail at your follow- up appointment, if applicable. Discharge Plan Admission Admit Date/Time: 04/12/24 15:24 Attending Provider: Shar Parikh Primary Care Provider: Shar Esparza Consulting Providers: Ernst Clayton; Hilary Boateng; José Manuel Long Discharge Orders/Prescriptions Prescriptions: New acetaminophen 500 mg Tablet 1,000 mg PO TID 14 Days Qty: 84 0RF Rx Instructions: Do not take more than 3000 mg Tylenol in a 24-hour period. famotidine 20 mg Tablet 20 mg PO DAILY 30 Days Qty: 30 0RF oxycodone 5 mg Tablet 5 - 10 mg PO Q4H PRN PRN (Reason: Pain Score 4-10) 7 Days Qty: 42 0RF sennosides-docusate sodium [Stimulant Laxative Plus] 8.6-50 mg Tablet 2 tab PO BID 3 Days Qty: 12 0RF Rx Instructions: Take until first bowel movement, then as needed Continued losartan 25 mg tablet 25 mg PO DAILY allopurinol 100 mg tablet 100 mg PO DAILY glimepiride 4 mg tablet 4 mg PO DAILY calcium carbonate 500 mg calcium (1,250 mg) tablet 500 mg PO DAILY cyanocobalamin (vitamin B-12) [Vitamin B-12] 1,000 mcg tablet 1,000 mcg PO QDAY zinc gluconate 50 mg tablet 50 mg PO DAILY vitamin E 200 unit capsule 134 mg PO DAILY KYOLIC 1 cap PO DAILY Held [place] 3-6-9 1,200 mg capsule 1 cap PO DAILY Hold Instructions: Resume on 04/27/24. aloe vera 25 mg capsule 25 mg PO DAILY Hold Instructions: Resume on 04/27/24. ligia root extract 15 mg tablet,chewable 15 mg PO DAILY Hold Instructions: Resume on 04/27/24. apple cider vinegar 500 mg tablet 500 mg PO DAILY Hold Instructions: Resume on 04/27/24. Other Ambulatory Orders: Basic Metabolic Profile (BMP) (Routine) Timeframe: 2 Weeks Facility: [facility] - Location: Laboratory Ordered By: Gil TORRES CBC-Complete Blood Cnt No Diff (Routine) Timeframe: 2 Weeks Facility: [facility] - Location: Laboratory Ordered By: Gil TORRES Referrals / Follow Up: Physical,Therapy [Other] - 04/15/24 8:00 am Shar Esparza MD [Primary Care Provider] - (follow up in 2-3 weeks with labs) Vance Jaramillo PA-C [Med Staff - Adv Practice Prof] - 04/26/24 8:30 am Disposition Disposition (needs filled in before D/C Order can be placed): Home, Self Care
[2024-04-13 08:10] LABS: Bedside Glucose 226 mg/dL (74-106)
[2024-04-13 08:25] LABS: Hematocrit 33.5 % (40-54); Hemoglobin 10.7 g/dL (13.0-16.5); Mean Corp Hgb Conc 31.9 g/dL (32-36); Mean Corpuscular Hgb 30.7 pg (27.0-32.0); Mean Platelet Vol. 11.4 fl (6.2-12.0); Platelet Count 215 K/mm3 (150-450); RBC Distribution Width CV 14.6 % (11.6-14.6); RBC Distribution Width SD 50.9 fl (35.1-43.9); Red Blood Count 3.49 M/mm3 (4.6-6.2); White Blood Count 23.8 K/mm3 (4.4-11.0)
[2024-04-13 08:26] LABS: Anion Gap 7 (5-15); BUN 58 mg/dL (7-18); BUN/Creat Ratio 26.4 RATIO (10-20); Calcium,Total 8.8 mg/dL (8.5-10.1); Chloride 106 mmol/L (98-107); EST Glomerular Filtration Rate 31 mL/min (>60); Est Glom Filt Rate - Afr Amer 38 mL/min (>60); Estimated Creatinine Clearance 26.54 ml/min; Glucose 224 mg/dL (74-106); Potassium 5.3 mmol/L (3.5-5.1); Sodium Level 135 mmol/L (136-145)
[2024-04-13] MEDS: Allopurinol 100 MG Tablet PO (08:29)
[2024-04-13] MEDS: Famotidine 20 MG Tablet PO (08:29)
[2024-04-13] MEDS: Ensure Surgery 237 ML LIQUID PO (08:29)
[2024-04-13] MEDS: Senna/Docusate Sodium 1 Tablet 2 TABLET PO (08:29)
[2024-04-13] MEDS: Aspirin 81 MG TAB.CHEW PO (08:29)
[2024-04-13] MEDS: Glimepiride 4 MG Tablet PO (08:29)
[2024-04-13] MEDS: Calcium (Elemental) 500 MG Tablet PO (08:29)
--- NOTE | 2024-04-13 10:31 | CASEMGMT ---
BREANNE SAUNDERS Assessment: Face to Face with pt for initial transition planning/care coordination assessment. RN NICKY introduced self and role at [facility], pt voices understanding and consents to assessment. Pt is A&O x4 and answers all questions appropriately at this time. Pt sitting up in bed in no distress. Care providers, pharmacy, and demographics verified/updated. Admitting Dx: L Total Knee Strata Score: 1 PCP: Isaias Specialists:Jl, Orthopedics; Kris, Patient Care Technician Instructor; Materials Tech, does not recall doctor's name. Preferred Pharmacy: [facility] Insurance: [facility], [employer] Prescription Benefit: yes LNOK: Living Arrangements: Pt lives with in Independent Living in a 1 story condo with zero steps to enter. Transportation: Pt drives self and denies concerns with transportation. DME: Walker. HHC/SNF: Denies Hx of. Pt states no concerns with going home at time of dc. Pt reports has a follow up appointment and OP PT scheduled for 04/15. Pt does not recall time of appointment but states will know. Pt states no further concerns/needs. CM to follow. Advised pt to ask CM if any further question/concerns/needs arise, voices understanding. Pt Goal: Home Plan: Home with OP therapy Kvng Granger RN, CM
[2024-04-13 11:04] VITALS: BP 143/76; PULSE 65; RESP 18; TEMP 36.6; O2SAT 99
[2024-04-13 11:37] VITALS: O2SAT 99
[2024-04-13 11:40] LABS: Bedside Glucose 209 mg/dL (74-106)
--- NOTE | 2024-04-13 12:12 | PN.HOSP_ITS ---
Reason for Visit Reason for Visit: Diagnoses Anemia, unspecified (04/12/24) Unilateral primary osteoarthritis, left knee (04/12/24) Encounter for other preprocedural examination (04/12/24) Personal history of other diseases of urinary system (04/12/24) Presence of left artificial knee joint (04/12/24) Objective Data Objective Data Vital Signs: Vital Signs Temp Pulse Resp BP Pulse Ox O2 Del Method O2 Flow Rate 98 F 65 18 143/76 H 99 Room Air 4 04/13/24 11:04 04/13/24 11:04 04/13/24 11:04 04/13/24 11:04 04/13/24 11:37 04/13/24 11:04 04/12/24 10:30 Oxygen Flow Rate (L/min) 4 Oxygen Delivery Method Room Air Weight: 155 lb 3.287 oz Body Mass Index (BMI) 28.3 Intake & Output: Intake and Output for Last 24 Hours 04/11/24 04/12/24 04/13/24 23:59 23:59 23:59 Intake Total 3379.92 / 3579.92 1300 / 1300 Output Total 850 / 1050 375 / 375 Balance 2529.92 / 2529.92 925 / 925 Lab / Micro Data 04/13/24 06:57 04/13/24 06:57 Labs: Laboratory Results - last 24 hr 04/12/24 14:44: POC Glucose 338 H 04/12/24 17:06: POC Glucose 330 H 04/12/24 20:55: POC Glucose 251 H 04/13/24 06:56: POC Glucose 226 H 04/13/24 06:57: WBC 23.8 H, RBC 3.49 L, Hgb 10.7 L, Hct 33.5 L, MCV 96.0 H, MCH 30.7, MCHC 31.9 L, RDW Std Deviation 50.9 H, RDW Coeff of Suly 14.6, Plt Count 215, MPV 11.4, Sodium 135 L, Potassium 5.3 H, Chloride 106, Carbon Dioxide 22.0, Anion Gap 7, BUN 58 H, Creatinine 2.20 H, Estim Creat Clear Calc 26.54, Est GFR (MDRD) Af Amer 38 L, Est GFR (MDRD) Non-Af 31 L, BUN/Creatinine Ratio 26.4 H, G lucose 224 H, Calcium 8.8 04/13/24 11:18: POC Glucose 209 H Micro: Microbiology 03/30/24 07:57 Swab (Method) Nasal Screen MRSA/MSSA - Final Physical Exam Narrative Seen and examined Patient does not have much pain. He walked with the physical therapy. He has single kidney. His creatinine is chronically elevated. No change in the urine output recently. No hematuria Physical exam General: Alert, Oriented x3, Cooperative HEENT: Atraumatic, PERRLA, EOMI, Normocephalic Oral: Oral mucosa moist. No Gingival or Mucosal Lesions/ Ulcerations Neck: Supple, No JVD, Negative Carotid Bruits Chest wall/Lungs: Air entry diminished in bilateral lung bases. No crepitation/rhonchi Cardiovascular: Regular rate, Regular Rhythm, Normal S1, Normal S2, systolic murmur LLSB cardiac apex. Abdomen: Bowel Sounds Present, Soft, Non Tender, Non-Distended : No dysuria. Spontaneously voided urine. No renal angle tenderness. No suprapubic tenderness. Extremities: No edema, Capillary Refill Less than 3 Seconds Skin: No rashes, No breakdown Musculoskeletal: No Tenderness to Palpation of Joints or Extremities Neurological: Cranial nerves II-XII grossly intact, DTR 2+/4. No acute focal neurological deficit. Psych/Mental Status: Normal Affect, Appropriate. Assessment & Plan Assessment/Plan (1) Osteoarthritis of left knee: PLAN: Plan This is a 72-year-old gentleman was seen as hospitalist consultation for perioperative management of left knee primary osteoarthritis. 1. Left knee primary osteoarthritis recalcitrant to medical management: Patient is being admitted on [facility] floor after left knee minimally invasive robotic assisted TKR on 04/12/2024. Dressing is dry. No significant pain. Patient can move his toes. Voided urine. Had bowel movement before surgery. DVT prophylaxis as per surgeon's discretion. Incentive spirometry. 04/13: Dressing is dry. Patient up and walking. No acute issues. Recommend 30 days low-dose DOAC either Eliquis or Xarelto for DVT prophylaxis 2. Diabetes mellitus type 2: Last glucose 141 on BMP on 04/07. A1c 6.6% on 03/30. Patient on sliding scale insulin besides oral medications glimepiride 4 mg daily. 04/13 glucose is 224 high. A1c 6.6%. Follow with PCP to further optimize his glucose control. 3. Hypertension, not on goal: Blood pressure today is in systolic 140s to 166. Monitor BP. On losartan 25 mg daily. Hydralazine 10 mg IV Q4 hourly as needed for SBP more than 180 mmHg. BP 143/76, well-controlled 4. 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 Expected creatinine about 1.3-1.6 with single kidney. Last BMP from 04/07 shows K5.2 mild hypokalemia, sodium normal bicarb normal. Therefore IV fluids selected is half-normal saline. Monitor BMP tomorrow AM. 04/13: Patient's creatinine is 2.13-2.2 in March 2024. Prior to that last creatinine was 1.65 from March 2021, 3 years ago. And it was similar in February 2020. It was about 1.36 in 2015 and 2016. No acute change in urine output, oliguria, hematuria or dysuria. Advised to follow-up substance addiction coordinator Dr. Farhana Ponce in 2 weeks. Losartan is on hold. 5. Overweight: BMI 28.4 kg/m?, weight loss counseling done. Laboratory Equipment Installer consult. 6. Chronic normocytic normochromic anemia: H&H 11.4/35.9%. Platelet count normal. Laboratory Results 04/12/24 05:57: POC Glucose 222 H 04/12/24 10:30: POC Glucose 194 H 04/12/24 14:44: POC Glucose 338 H Charges/Coding Visit Charges Inpatient E&M: 44775 Subs Hosp L2
[2024-04-13 12:48] VITALS: BP 166/78; PULSE 74; RESP 18; TEMP 36.9; O2SAT 98
--- NOTE | 2024-04-13 13:34 | PHA.DC_ITS ---
Pharmacy [facility] has performed discharge medication reconciliation and counseling for this patient. The patient's discharge medication list was reviewed for discrepancies and discrepancies were resolved. The patient was counseled on the following discharge medications and changes in medications for homegoing were reviewed. The Reason for Use, instructions for use, and potential side effects were reviewed for all new medications. The patient's questions regarding all of their medications were answered. 1. Acetaminophen 1000 mg PO TID 2. Senna/docusate 2 tablets PO BID 3. Oxycodone 5-10 mg PO Q4H PRN pain 4. Famotidine 20 mg PO daily The patient was able to verbally demonstrate an understanding of their discharge medications. Medications at Discharge Home Medications KYOLIC 1 cap PO DAILY 03/19/24 allopurinol 100 mg tablet 100 mg PO DAILY 03/19/24 aloe vera 25 mg capsule 25 mg PO DAILY 03/19/24 apple cider vinegar 500 mg tablet 500 mg PO DAILY 03/19/24 calcium carbonate 500 mg PO DAILY 03/19/24 cyanocobalamin (vitamin B-12) 1,000 mcg tablet (Vitamin B-12) 1,000 mcg PO QDAY 03/19/24 fish, borage, flaxseed oils-omega 3,6,9 comb no.1 1,200 mg capsule ([place] 3-6-9) 1 cap PO DAILY 03/19/24 ligia root extract 15 mg chewable tablet 15 mg PO DAILY 03/19/24 glimepiride 4 mg tablet 4 mg PO DAILY 03/19/24 losartan 25 mg tablet 25 mg PO DAILY 03/19/24 vitamin E 200 unit capsule 134 mg PO DAILY 03/19/24 zinc gluconate 50 mg tablet 50 mg PO DAILY 03/19/24 acetaminophen 500 mg tablet 1,000 mg (2 x 500 mg) PO TID 14 days #84 tabs 04/13/24 famotidine 20 mg tablet 20 mg PO DAILY 30 days #30 tabs 04/13/24 oxycodone 5 mg tablet 5 - 10 mg (1 - 2 x 5 mg) PO Q4H PRN PRN Pain Score 4-10 7 days #42 tabs 04/13/24 sennosides 8.6 mg-docusate sodium 50 mg tablet (Stimulant Laxative Plus) 2 tab PO BID 3 days #12 tabs 04/13/24
--- NOTE | 2024-04-13 14:37 | CASEMGMT ---
Met with patient to complete POLK form. POLK form explained to patient who voiced understanding but asked that I return after lunch to review it with his . Pt had been discharged prior to my return to the floor. Original form placed in pt?s chart with above explanation documented on it. Domitila Rapp, Discharge Planning Asst
== END 2024-04-13 13:49 | disposition home or self-care (01) ==
LOC: MS3 19:23 → ACINP 04-14 09:23 → SDC 04-14 09:24 → MS3 04-14 09:24
PROVIDERS: Anesthesiology; Admitting Provider Specialist; PCP Family Medicine; Referring Provider Specialist; Visit Provider Specialist
PROC: 0SRD0JZ Replacement of Left Knee Joint with Synthetic Substitute, Open Approach (ICD-10-PCS; CPT 27447; principal; 2024-04-12 07:00)
DX: M17.12 Unilateral primary osteoarthritis, left knee (principal); E11.22 Type 2 diabetes mellitus with diabetic chronic kidney disease; M10.9 Gout, unspecified; N18.9 Chronic kidney disease, unspecified; Z79.84 Long term (current) use of oral hypoglycemic drugs; D50.9 Iron deficiency anemia, unspecified; I12.9 Hypertensive chronic kidney disease with stage 1 through stage 4 chronic kidney disease, or unspecified chronic kidney disease; Q74.1 Congenital malformation of knee; Z79.899 Other long term (current) drug therapy
CPT/HCPCS: 27447; S2900; 01402; 64447; 36415; 73560; 80048; 82040; 82962; 83036; 83735; 85025; 85027; 87081; 88305; 88311; 93005; 94668; 96361; 96365; 96366; 96375; 97110; 97162; 97166; 97530; 99221; C1776; J7120; G0378; J2405; J3475